=== PATIENT | male | born 1955 | race Caucasian/White ===

== ENCOUNTER 2023-12-23 15:26 | Emergency (ER) | payer SELFPAY ==
[~2023-12-23] VITALS: Ht 160 cm; Wt 71.2 kg
[2023-12-23 15:30] VITALS: BP_SYST 141; PULSE 113; RESP 19; TEMP 100.2; O2SAT 96
[2023-12-23 18:16] LABS: BASOPHILS % (AUTO) 0.3 % (0.0-2.0); EOSINOPHILS # (AUTO) 0.1 K/uL (0.0-0.4); EOSINOPHILS % (AUTO) 0.6 % (0.0-4.0); HEMOGLOBIN 16.5 g/dL (14.0-18.0); LYMPHOCYTES % (AUTO) 6.7 % (20.5-51.5); MEAN CORPUSCULAR HEMOGLOBIN 33 pg (27-31); MEAN CORPUSCULAR HGB CONC 35 % (32-36); MEAN CORPUSCULAR VOLUME 93 fL (79.0-98.0); MONOCYTES # (AUTO) 0.9 K/uL (0.0-1.0); MONOCYTES % (AUTO) 6.2 % (1.7-9.3); NEUTROPHILS # (AUTO) 12.3 K/uL (1.8-7.7); NEUTROPHILS % (AUTO) 86.2 % (40.0-70.0); PLATELET COUNT (AUTO) 255 K/uL (130-430); RED BLOOD CELL COUNT(AUTO) 5.06 MIL/uL (4.2-6.2); RED CELL DISTRIBUTION WIDTH 13.7 % (9.0-15.0); WHITE BLOOD COUNT (AUTO) 14.3 K/uL (4.8-10.8)
[2023-12-23 18:29] LABS: ALANINE AMINOTRANSFERASE 22 U/L (12-78); ALBUMIN 3.3 g/dL (3.4-4.8); ANION GAP 6 (5-15); ASPARTATE AMINOTRANSFERASE 18 U/L (10-37); CALCIUM 8.7 mg/dL (8.4-11.0); CARBON DIOXIDE 29 mmol/L (23-29); CHLORIDE 103 mmol/L (98-107); CREATININE 0.99 mg/dL (0.55-1.30); GFR AFRICAN AMERICAN 97 mL/min (>90); GLUCOSE 102 mg/dL (74-106); POTASSIUM 4.7 mmol/L (3.5-5.1); SODIUM SERUM 138 mmol/L (136-145); TOTAL BILIRUBIN 0.3 mg/dL (0.0-1.0); TOTAL PROTEIN, SERUM 7.5 g/dL (6.4-8.3); UREA NITROGEN, BLOOD 10 mg/dL (8-21)
[2023-12-23 18:31] LABS: BILIRUBIN,DIRECT 0.1 mg/dL (0.0-0.3)
[2023-12-23 18:34] LABS: GFR NON AFRICAN-AMERICAN 80 mL/min (>90)
[2023-12-23 19:29] VITALS: TEMP 98.2
[2023-12-23] MEDS ORDERED: AMPICILLIN SODIUM/SULBACTAM NA 3 GM VIAL ONE (19:43)
[2023-12-23] MEDS: KETOROLAC TROMETHAMINE 30 MG VIAL IVP ONE (19:47)
[2023-12-23] MEDS: AMPICILLIN SODIUM/SULBACTAM NA 3 GM in NS 100 ML IV ONE (19:48)
[2023-12-23] MEDS ORDERED: DICL20GE TP (20:47)
[2023-12-23] MEDS ORDERED: SULF1TAB48 PO (20:47)
[2023-12-23] MEDS ORDERED: IBUP-1969 PO (20:47)
[2023-12-23] MEDS ORDERED: CEPH-548 PO (20:47)
[2023-12-23 21:33] VITALS: BP_SYST 118; PULSE 91; RESP 20; O2SAT 95
== END 2023-12-23 21:33 | disposition home or self-care (01) ==
LOC: SED 15:26
DX: S10.96XA Insect bite of unspecified part of neck, initial encounter (principal); S20.462A Insect bite (nonvenomous) of left back wall of thorax, initial encounter; L03.221 Cellulitis of neck; L03.818 Cellulitis of other sites; W57.XXXA Bitten or stung by nonvenomous insect and other nonvenomous arthropods, initial encounter; Y93.89 Activity, other specified; Y92.89 Other specified places as the place of occurrence of the external cause; Y99.8 Other external cause status
CPT/HCPCS: 99284; 96365; 96375; 80076; 80048; 85025; 87040; 84484; 36415; 83605; J0295; J1885